=== PATIENT | female | born 1995 | race Asian ===

== ENCOUNTER 2018-05-31 23:42 | Inpatient (IN) | payer OTHER ==
[2018-06-01] MEDS ORDERED: ONDANSETRON 4 MG/2 ML VIAL IVPUSH ONE ×2 (01:00→06:31)
[2018-06-01] MEDS ORDERED: ACETAMINOPHEN 1000 MG/100 ML VIAL (NON FORMULARY) IVPB ONE (01:12)
--- NOTE | 2018-06-01 01:24 | PDOC ---
History of Present Illness - General Chief Complaint: Nausea/Vomiting Stated Complaint: FEVER/VOMITING Time Seen by Provider: 06/01/18 00:18 - History of Present Illness Initial Comments: 06/01/18 01:50 CHIEF COMPLAINT: fever, vomiting, UTI HISTORY OF PRESENT ILLNESS: 22 yo F with no PMH presents to ED with fever and vomiting x 5 days. Patient states she started feeling left flank pain one week ago and dysuria approximately 5 days ago. She was seen at an urgent care facility 4 days ago and prescribed Bactrim and pyridium for a UTI. Patient started vomiting after starting the Bactrim and has not been able to keep any food or fluids down for the past few days. Patient reports Tmax of 102F at home , on arrival to ED patient is febrile to 103.4F and tachy to 104. Patient states she has been vomiting at least 4-7 times daily and also having diarrhea. PAST MEDICAL HISTORY: Denies past medical history FAMILY HISTORY: Denies SOCIAL HISTORY:Denies tobacco, alcohol, illicit drug use. SURGICAL HISTORY: Denies ALLERGIES: No known drug allergies REVIEW OF SYSTEMS General/Constitutional: Fever x 4 days. Denies weakness, weight change. HEENT: Denies change in vision. Denies ear pain or discharge. Denies sore throat. Cardiovascular: Denies chest pain or shortness of breath. Respiratory: Denies cough, wheezing, or hemoptysis. Gastrointestinal: Vomiting x 4 days, diarrhea. Denies constipation, rectal bleeding. Genitourinary: Dysuria x 5 days. Denies hematuria, frequency. Musculoskeletal: L flank pain. Denies joint or muscle swelling or pain. Skin and breasts: Denies rash or easy bruising. Neurologic: Denies headache, vertigo, loss of consciousness, or loss of sensation. PHYSICAL EXAM General Appearance: Uncomfortable appearing, pale, diaphoretic, actively vomiting. HEENT: EOMI, PERRLA, normal ENT inspection, normal voice, TMs normal, pharynx normal. No conjunctival pallor. No photophobia, scleral icterus. Respiratory/Chest: Lungs CTAB. No shortness of breath, chest tenderness, respiratory distress, accessory muscle use. No crackles, rales, rhonchi, stridor , wheezing, dullness Cardiovascular: RRR. S1, S2. Gastrointestinal/Abdominal: Normal bowel sounds. Abdomen soft, non-distended. No tenderness or rebound tenderness. No organomegaly, pulsatile mass, guarding , hernia, hepatomegaly, splenomegaly. Musculoskeletal/Extremities: L CVA tenderness. Normal inspection. FROM of all extremities, normal capillary refill. Pelvis Stable. No CVA tenderness. No tenderness to extremities, pedal edema, swelling, erythema or deformity. Integumentary: Appropriate color, dry, warm. No cyanosis, erythema, jaundice or rash Neurologic: jig operator II-XII intact. Fully oriented, alert. Appropriate mood/affect. Motor strength 5/5. No appreciable EOM palsy, facial droop or sensory deficit. Past History - Past Medical History Allergies/Adverse Reactions: Allergies Allergy/AdvReac Type Severity Reaction Status Date / Time No Known Allergies Allergy Verified 06/01/18 00:45 - Suicide/Smoking/Psychosocial Hx Smoking History: Never smoked Have you smoked in the past 12 months: No Information on smoking cessation initiated: No Hx Alcohol Use: No Drug/Substance Use Hx: No *Physical Exam - Vital Signs Last Vital Signs Temp Pulse Resp BP Pulse Ox 103.4 F H 104 H 20 104/67 99 05/31/18 23:55 05/31/18 23:55 05/31/18 23:55 05/31/18 23:55 05/31/18 23:55 ED Treatment Course - LABORATORY CBC & Chemistry Diagram: 06/01/18 02:47 06/01/18 02:47 Medical Decision Making - Medical Decision Making 06/01/18 02:01 22 yo F with no PMH presents to ED with fever and vomiting x 5 days. Patient ill-appearing, febrile and tachycardic. Concern for sepsis secondary to pyelo, full sepsis workup ordered. -Ofirmev, Zofran, fluids Laboratory Tests 06/01/18 06/01/18 06/01/18 02:47 02:47 03:50 WBC 14.4 H Absolute Neuts (auto) 12.0 H Neutrophils % 83.1 H Potassium 3.2 L Urine Nitrite Positive Ur Leukocyte Esterase 3+ H Urine WBC (Auto) 1300 Urine RBC (Auto) 22 Patient has failed outpt abx, will admit for IV abx, awaiting CT results. Patient also hypokalemic, likely secondary to persistent vomiting. Will replete. -K-dur -Zosyn 06/01/18 04:50 CT findings suspicious for pyelo and small right sided nonbstructing stone. 06/01/18 06:44 Patient's PCP is MD Verma, will admit to hospitalist for inpatient services. . *DC/Admit/Observation/Transfer Diagnosis at time of Disposition: Pyelonephritis - Discharge Dispostion Decision to Admit order: Yes - Referrals - Patient Instructions - Post Discharge Activity
[2018-06-01] MEDS ORDERED: ACETAMINOPHEN INJECTION 100 ML IVPB ONE (01:54)
[2018-06-01] MEDS ORDERED: ONDANSETRON 4 MG/2 ML VIAL ONE ×3 (02:24→14:45)
[2018-06-01] MEDS ORDERED: SODIUM CHLORIDE 0.9% 500 ML INFUS.BAG IV ONE (02:26)
[2018-06-01 03:04] LABS: VENOUS PC02 28.9 mmHg (38-52); VENOUS PH 7.5 (7.32-7.42); VENOUS PO2 82.3 mmHg (28-48)
[2018-06-01 03:11] LABS: BASO % 0.2 % (0-2.0); HEMATOCRIT 36.2 % (32.4-45.2); HEMOGLOBIN 11.8 GM/dL (10.7-15.3); MCH 27.1 pg (25.7-33.7); MCHC 32.6 g/dl (32.0-36.0); MEAN CELL VOLUME 83.3 fl (80-96); MEAN PLT VOLUME 7.7 fl (7.5-11.1); MONO % 12.7 % (3.8-10.2); NEUT % 83.1 % (42.8-82.8); PLATELET COUNT 214 K/MM3 (134-434); RBC 4.35 M/mm3 (3.60-5.2); WHITE BLOOD COUNT 14.4 K/mm3 (4.0-10.0)
[2018-06-01 03:25] LABS: INR 1.2 (0.83-1.09); PROTHROMBIN TIME (PATIENT) 14.2 SEC (9.7-13.0)
[2018-06-01 03:28] LABS: ACTIVATED PTT 33.7 SECONDS (25.2-36.5)
[2018-06-01 03:39] LABS: ALBUMIN 3.2 g/dl (3.4-5.0); ALK PHOS 86 U/L (45-117); ANION GAP 9 MMOL/L (8-16); BILIRUBIN,TOTAL 0.5 mg/dL (0.2-1); BLOOD UREA NITROGEN 7 mg/dL (7-18); CALCIUM 8.3 mg/dL (8.5-10.1); CHLORIDE 103 mmol/L (98-107); CO2 23 mmol/L (21-32); CREATININE 0.9 mg/dL (0.55-1.3); GLUCOSE,RANDOM 109 mg/dL (74-106); LIPASE 85 U/L (73-393); POTASSIUM 3.2 mmol/L (3.5-5.1); SGOT/AST 12 U/L (15-37); SGPT/ALT 18 U/L (13-61); SODIUM 135 mmol/L (136-145); TOT PROT 6.8 g/dl (6.4-8.2)
[2018-06-01] MEDS ORDERED: POTASSIUM CHLORIDE TABS 20 MEQ TABLET.ER (FP) PO ONE ×3 (03:41→05:13)
[2018-06-01 04:12] LABS: URINE APPEARANCE CLOUDY; URINE BILIRUBIN NEGATIVE (<2.0 mg/dL); URINE COLOR AMBER; URINE GLUCOSE (UA) NEGATIVE (NEGATIVE); URINE KETONE TRACE (NEGATIVE); URINE LEUK ESTERASE 3+ (NEGATIVE); URINE NITRITE POSITIVE (NEGATIVE); URINE PROTEIN 2+ (NEGATIVE)
[2018-06-01 04:39] LABS: EPI CELLS RARE /HPF (FEW); URINE BACTERIA MANY /hpf (NONE SEEN)
[2018-06-01] MEDS ORDERED: PIPERACILLIN/TAZOB 3.375 GM 3.375 GM in DEXTROSE 5%-WATER - 50 ML IVPB ONE (04:55)
[2018-06-01] MEDS ORDERED: PIPERACILLIN/TAZOB 3.375 GM 3.375 GM/50 ML BAG IVPB ONE (05:36)
[2018-06-01] MEDS ORDERED: ACETAMINOPHEN 500 MG TABLET (FP) PO ONE (06:31)
[2018-06-01] MEDS ORDERED: ACETAMINOPHEN 325 MG TABLET (FP) ONE ×2 (06:48→06:53)
[2018-06-01] MEDS ORDERED: IBUPROFEN 400 MG TABLET (FP) PO ONE ×2 (06:51→06:53)
[2018-06-01] MEDS ORDERED: SODIUM CHLORIDE 1,000 ML IV SCH (07:30)
[2018-06-01] MEDS ORDERED: CEFTRIAXONE 2 GM/100 ML BAG IVPB ONE (09:02)
[2018-06-01] MEDS: CEFTRIAXONE 2 GM in DEXTROSE 5%-WATER 100 ML IVPB SCH (09:04)
--- NOTE | 2018-06-01 11:07 | EKG ---
Test Reason : Blood Pressure : / mmHG Vent. Rate : 091 BPM Atrial Rate : 091 BPM P-R Int : 118 ms QRS Dur : 086 ms QT Int : 338 ms P-R-T Axes : 037 033 -01 degrees QTc Int : 415 ms NORMAL SINUS RHYTHM NONSPECIFIC T WAVE ABNORMALITY ABNORMAL ECG NO PREVIOUS ECGS AVAILABLE Confirmed by PRINCE HENRY, MAHESH ([id number]) on 06/01/2018 11:06:35 AM Referred By: Confirmed By:MAHESH MORRISON MD
[2018-06-01] MEDS ORDERED: SODIUM CHLORIDE 1,000 ML IV STA ×2 (11:21→14:20)
--- NOTE | 2018-06-01 14:20 | HP ---
CHIEF COMPLAINT: Fever, Dysuria PCP: Dr. Verma HISTORY OF PRESENT ILLNESS: 22yo F with no medical history who presents today for fevers and chills x5 days. Pt reports developing some dysuria without polyuria and then developing fevers and chills shortly thereafter. Unfortunately pt began to develop L sided flank pain without radiation more throbbing and intermittent in nature 2 days prior to this admission. Pt reportedly was seen at an urgent care 4 days prior and was prescribed Bactrim. Pt completed 5 doses (today being the fifth) without improvement of symptoms. Pt also endorses some loose stools and vomiting NB/NB several times prior to coming to ED for evaluation (since resolved with medication). Pt denies any headaches, shortness of breath, chest pain, abdominal pain, hematuria, , recent steroid use. LMP 2 weeks prior ER course was notable for: (1) Hypokalemia 3.2 and repletion Kdur (2) Fever 103*F (3) CT A/P noncontrast - L pyelonephritis with possible nonobstructing stone on L side (4) Zosyn x1 (5) 1L NS Recent Travel: Denies PAST MEDICAL HISTORY: None PAST SURGICAL HISTORY: None Social History: Smoking: Denies Alcohol: Social Drugs: Denies Allergies No Known Allergies Allergy (Verified 06/01/18 00:45) HOME MEDICATIONS: Home Medications Medication Instructions Recorded NK [No Known Home Medication] 06/01/18 REVIEW OF SYSTEMS CONSTITUTIONAL: PRESENT: fever, chills, Absent: diaphoresis, generalized weakness, malaise, loss of appetite, weight change HEENT: Absent: rhinorrhea, nasal congestion, throat pain, throat swelling, difficulty swallowing, mouth swelling, ear pain, eye pain, visual changes CARDIOVASCULAR: Absent: chest pain, syncope, palpitations, irregular heart rate, lightheadedness , peripheral edema RESPIRATORY: Absent: cough, shortness of breath, dyspnea with exertion, orthopnea, wheezing, stridor GASTROINTESTINAL: PRESENT: Diarrhea, vomiting, nausea Absent: abdominal pain, abdominal distension, melena, hematochezia GENITOURINARY: PRESENT: Dysuria, flank pain Absent: frequency, urgency, hesitancy, hematuria MUSCULOSKELETAL: Absent: myalgia, arthralgia, joint swelling, neck pain SKIN: Absent: rash, itching PHYSICAL EXAMINATION Vital Signs - 24 hr 10/06/01/18 06/01/18 23:55 02:11 05:30 Temperature 103.4 F H 100 F H Pulse Rate 104 H Pulse Rate [ 105 H Apical] Respiratory 20 18 Rate Blood Pressure 104/67 Blood Pressure 102/59 L [Right Arm] O2 Sat by Pulse 99 100 100 Oximetry (%) 06/01/18 06/01/18 08:55 11:03 Temperature 99.6 F 99.7 F H Pulse Rate 96 H 94 H Pulse Rate [ Apical] Respiratory 17 17 Rate Blood Pressure 87/47 L 85/46 L Blood Pressure [Right Arm] O2 Sat by Pulse 98 Oximetry (%) GENERAL: Septic-appearing, awake, alert, fully oriented, layin in bed, slightly diaphoretic HEENT: EOMI, ELEANOR, sclera anicteric, [id number] mucosa, no erythema or plaques in posterior oropharynx NECK: No JVD, no lymphadenopathy. LUNGS: CTA bilaterally. No wheezes, and no crackles. No accessory muscle use. HEART: RRR, normal S1 and S2 without murmur ABDOMEN: Soft, nondistended, slight tenderness with L abdominal palpation felt in CVA region, no guarding, no suprapubic tenderness, normoactive BS, no hepatomegaly via palpation. MUSCULOSKELETAL: L CVA tenderness (no R CVA tenderness). EXTREMITIES: 2+ pulses, warm, well-perfused. No cyanosis. No clubbing. No peripheral edema. NEUROLOGICAL: rug sizer II-XII intact. Normal speech. Gait not observed PSYCHIATRIC: Cooperative. Good eye contact. Appropriate mood and affect. SKIN: globally very warm, dry, no rashes or lesions noted Laboratory Results - last 24 hr 06/01/18 06/01/18 06/01/18 02:47 02:47 02:47 WBC 14.4 H RBC 4.35 Hgb 11.8 Hct 36.2 MCV 83.3 MCH 27.1 MCHC 32.6 RDW 14.0 Plt Count 214 MPV 7.7 Absolute Neuts (auto) 12.0 H Neutrophils % 83.1 H Lymphocytes % 4.0 L Monocytes % 12.7 H Eosinophils % 0.0 Basophils % 0.2 Nucleated RBC % 0 PT with INR INR PTT (Actin FS) VBG pH 7.50 H POC VBG pCO2 28.9 L POC VBG pO2 82.3 H Mixed VBG HCO3 22.1 Sodium Potassium Chloride Carbon Dioxide Anion Gap BUN Creatinine Creat Clearance w eGFR Random Glucose Lactic Acid 0.8 Calcium Total Bilirubin AST ALT Alkaline Phosphatase Troponin I Total Protein Albumin Lipase Serum , Qual Urine Color Urine Appearance Urine pH Ur Specific [place] Urine Protein Urine Glucose (UA) Urine Ketones Urine Blood Urine Nitrite Urine Bilirubin Urine Urobilinogen Ur Leukocyte Esterase Urine WBC (Auto) Urine RBC (Auto) Ur Epithelial Cells Urine Bacteria 06/01/18 06/01/18 06/01/18 02:47 03:04 03:04 WBC RBC Hgb Hct MCV MCH MCHC RDW Plt Count MPV Absolute Neuts (auto) Neutrophils % Lymphocytes % Monocytes % Eosinophils % Basophils % Nucleated RBC % PT with INR 14.20 H INR 1.20 H PTT (Actin FS) 33.7 VBG pH POC VBG pCO2 POC VBG pO2 Mixed VBG HCO3 Sodium 135 L Potassium 3.2 L Chloride 103 Carbon Dioxide 23 Anion Gap 9 BUN 7 Creatinine 0.9 Creat Clearance w eGFR > 60 Random Glucose 109 H Lactic Acid Calcium 8.3 L Total Bilirubin 0.5 AST 12 L ALT 18 Alkaline Phosphatase 86 Troponin I < 0.02 Total Protein 6.8 Albumin 3.2 L Lipase 85 Serum , Qual Negative Urine Color Urine Appearance Urine pH Ur Specific [place] Urine Protein Urine Glucose (UA) Urine Ketones Urine Blood Urine Nitrite Urine Bilirubin Urine Urobilinogen Ur Leukocyte Esterase Urine WBC (Auto) Urine RBC (Auto) Ur Epithelial Cells Urine Bacteria 06/01/18 03:50 WBC RBC Hgb Hct MCV MCH MCHC RDW Plt Count MPV Absolute Neuts (auto) Neutrophils % Lymphocytes % Monocytes % Eosinophils % Basophils % Nucleated RBC % PT with INR INR PTT (Actin FS) VBG pH POC VBG pCO2 POC VBG pO2 Mixed VBG HCO3 Sodium Potassium Chloride Carbon Dioxide Anion Gap BUN Creatinine Creat Clearance w eGFR Random Glucose Lactic Acid Calcium Total Bilirubin AST ALT Alkaline Phosphatase Troponin I Total Protein Albumin Lipase Serum , Qual Urine Color [place] Urine Appearance Cloudy Urine pH 6.0 Ur Specific [place] 1.023 Urine Protein 2+ H Urine Glucose (UA) Negative Urine Ketones Trace H Urine Blood 1+ H Urine Nitrite Positive Urine Bilirubin Negative Urine Urobilinogen 2.0 H Ur Leukocyte Esterase 3+ H Urine WBC (Auto) 1300 Urine RBC (Auto) 22 Ur Epithelial Cells Rare Urine Bacteria Many ASSESSMENT/PLAN: 1) Sepsis 2/2 to acute pyelonephritis --Confirmed via CT scan (L renal stranding with possible L nonoccluding nephrolith) --R[place]pehin 2mg IV --Toradol 10mg q6h PO for pain --Bolus 2L NS then can keep NS@100c/hr --Urine cultures and blood cultures pending --Zofran PRN for nausea FEN: Fluids: As above Electrolyte abnormalities: Hypokalemia repleted in ED (repeat with AM labs tomorrow) Nutrition: Regular diet PPX: DVT - Lovenox daily GI - None indicated Dispo: Admit M/S Case discussed with Dr. Eloy Bravo, DO - IM PGY-2 Visit type - Emergency Visit Emergency Visit: Yes ED Registration Date: 06/01/18 Care time: The patient presented to the Emergency Department on the above date and was hospitalized for further evaluation of their emergent condition. - New Patient This patient is new to me today: Yes Date on this admission: 06/01/18 - Critical Care Critical Care patient: No
[2018-06-01] MEDS: ONDANSETRON 4 MG/2 ML VIAL IVPUSH PRN (14:46)
--- NOTE | 2018-06-01 14:46 | PN ---
Teaching Attending Note Name of Resident: Khanh Bravo ATTENDING PHYSICIAN STATEMENT I saw and evaluated the patient. I reviewed the resident's note and discussed the case with the resident. I agree with the resident's findings and plan as documented. SUBJECTIVE:22yo F with no PMH presented to the ER with fevers and vomiting x4days. highest recorded temp at home 102. pt states she had some subjective fevers and L flank pain and went to urgent care last week and was given bactrim which she took for 5 days, had some mild relief and then progressively worsened. no previous infections. denies CP, SOB, V/C/D states she always is told her BP is low OBJECTIVE: Last Vital Signs Temp Pulse Resp BP Pulse Ox 99.7 F H 86 18 91/51 L 98 06/01/18 11:03 06/01/18 14:18 06/01/18 14:18 06/01/18 14:18 06/01/18 14:18 General lethargic, diaphoretic CV S1 S2 RRR no murmur/rub/gallop Lungs CTA B/l no wheezing/rales/rhonchi Abdomen soft NT/ND no flank tenderness + L CVA tenderness Extremities no pedal edema ASSESSMENT AND PLAN: 22yo F with no PMH presented to the ER with fevers and vomiting x4days found to be septic due to pyelonephritis 1. Sepsis due to pyleonephritis- Tm 103.4 with tachycardia. repeat BP by me 95/ 63. received 2L NS so far will give an additional 2L then start at 100cc. Received zosyn in the ER will switch to ceftriaxone. F/u Cx 2. Hypokalemia- repleted iwth Kcl 3. DVT ppx- lovenox
[2018-06-01] MEDS ORDERED: RANITIDINE HCL 150 MG TABLET (FP) ONE (16:11)
[2018-06-01] MEDS: RANITIDINE HCL 150 MG TABLET (FP) PO SCH (16:19)
[2018-06-01] MEDS: SODIUM CHLORIDE 1,000 ML IV SCH (20:15)
[2018-06-01] MEDS: ACETAMINOPHEN 1000 MG/100 ML VIAL (NON FORMULARY) IVPB PRN (20:16)
[2018-06-01] MEDS ORDERED: FLU VACCINE QUAD 60 MCG/0.5 ML (MDV 18-19) IM ONE (21:20)
[2018-06-01] MEDS: HEPARIN NA (PORCINE) 5,000 UNITS/ML 1ML VIAL SQ SCH (22:44)
[2018-06-02] MEDS: ONDANSETRON 4 MG/2 ML VIAL IVPUSH PRN (02:24)
[2018-06-02] MEDS: SODIUM CHLORIDE 1,000 ML IV SCH ×4 (02:39→18:42)
[2018-06-02] MEDS: ACETAMINOPHEN 1000 MG/100 ML VIAL (NON FORMULARY) IVPB PRN ×3 (02:41→21:09)
[2018-06-02] MEDS: HEPARIN NA (PORCINE) 5,000 UNITS/ML 1ML VIAL SQ SCH ×3 (06:10→21:07)
[2018-06-02 07:43] LABS: BASO % 0.2 % (0-2.0); HEMATOCRIT 30.9 % (32.4-45.2); LYMPH % 9.6 % (8-40); MCH 27.1 pg (25.7-33.7); MCHC 32.3 g/dl (32.0-36.0); MEAN CELL VOLUME 83.9 fl (80-96); MEAN PLT VOLUME 7.5 fl (7.5-11.1); NEUT % 76.2 % (42.8-82.8); PLATELET COUNT 194 K/MM3 (134-434); RBC 3.68 M/mm3 (3.60-5.2); RDW 14.6 % (11.6-15.6); WHITE BLOOD COUNT 12.3 K/mm3 (4.0-10.0)
[2018-06-02 08:18] LABS: ANION GAP 6 MMOL/L (8-16); BLOOD UREA NITROGEN 5 mg/dL (7-18); CALCIUM 7.5 mg/dL (8.5-10.1); CHLORIDE 110 mmol/L (98-107); CO2 23 mmol/L (21-32); CREATININE 0.7 mg/dL (0.55-1.3); GLUCOSE,RANDOM 94 mg/dL (74-106); MAGNESIUM 2.1 mg/dL (1.8-2.4); POTASSIUM 3.9 mmol/L (3.5-5.1); SODIUM 140 mmol/L (136-145)
[2018-06-02] MEDS ORDERED: DEXTROSE 5%-WATER 100 ML IVPB ONE (09:32)
--- NOTE | 2018-06-02 09:41 | PN ---
Physical Exam: SUBJECTIVE: Patient seen and examined at bedside. Patient continued to spike fevers throughout the night- TMAX was 102, patient was given tylenol and in addition multiple ice packs were placed on patients body, however, she had no episodes of vomiting over night. Currently, she is having a low grade fever at 100.2 She states her pain is better, however, she is still having some nausea, dysuria and complains of feeling bloated. She denies any CP, SOB, or vomiting. OBJECTIVE: Vital Signs Period Temp Pulse Resp BP Sys/Sim Pulse Ox Last 24 Hr 99.4 F-103 F 86-112 17-20 85-118/46-71 98-98 GENERAL: The patient is awake, alert, laying down in bed appearing in slight distress. LUNGS: Breath sounds equal, clear to auscultation bilaterally, no wheezes, no crackles, no accessory muscle use. HEART: Regular rate and rhythm, S1, S2 without murmur, rub or gallop. ABDOMEN: Soft, nontender, nondistended, normoactive bowel sounds, no guarding, no rebound, no hepatosplenomegaly, no masses. MUSCULOSKELETAL: slight L sided CVA tenderness EXTREMITIES: 2+ pulses, warm, well-perfused, no edema. . PSYCH: Normal mood, normal affect. SKIN: Warm, dry, normal turgor, no rashes or lesions noted Laboratory Results - last 24 hr 06/02/18 06/02/18 07:08 07:08 WBC 12.3 H RBC 3.68 Hgb 10.0 L Hct 30.9 L MCV 83.9 MCH 27.1 MCHC 32.3 RDW 14.6 Plt Count 194 MPV 7.5 Absolute Neuts (auto) 9.4 H Neutrophils % 76.2 Lymphocytes % 9.6 D Monocytes % 14.0 H Eosinophils % 0.0 Basophils % 0.2 Nucleated RBC % 0 Sodium 140 Potassium 3.9 Chloride 110 H Carbon Dioxide 23 Anion Gap 6 L BUN 5 L Creatinine 0.7 Creat Clearance w eGFR > 60 Random Glucose 94 Calcium 7.5 L Magnesium 2.1 Active Medications Generic Name Dose Route Start Last Admin Trade Name Freq PRN Reason Stop Dose Admin Acetaminophen 1,000 mg 06/01/18 11:24 06/02/18 02:41 Ofirmev Injection - IVPB 1,000 mg Q6H PRN Administration FEVER Heparin Sodium (Porcine) 5,000 unit 06/01/18 22:00 06/02/18 06:10 Heparin - SQ 5,000 unit TID AROLDO Administration Ceftriaxone Sodium 2 gm/ 100 mls @ 200 mls/hr 06/01/18 10:00 06/01/18 09:04 Dextrose IVPB 200 mls/hr DAILY AROLDO Administration Protocol Sodium Chloride 1,000 mls @ 150 mls/hr 06/01/18 18:06 06/02/18 02:39 Normal Saline - IV 150 mls/hr ASDIR AROLDO Administration Ketorolac Tromethamine 10 mg 06/01/18 12:29 Toradol PO 06/06/18 12:28 Q6H PRN PAIN LEVEL 6-10 Ondansetron HCl 4 mg 06/01/18 11:24 06/02/18 02:24 Zofran Injection IVPUSH 4 mg Q6H PRN Administration NAUSEA AND/OR VOMITING Ranitidine HCl 150 mg 06/01/18 16:00 06/01/18 16:19 Zantac - PO 150 mg DAILY AROLDO Administration ASSESSMENT/PLAN: Sepsis 2/2 to acute pyelonephritis --Ceftriaxone 2mg IV --Toradol 10mg q6h PO for pain --Urine cultures and blood cultures pending --Zofran PRN for nausea --Tylenol PRN for fever FEN: Fluids: NS @100cc/hr Electrolyte abnormalities: Hypokalemia resolved Nutrition: Regular diet PPX: DVT -Heparin SQ Problem List - Problems (1) Pyelonephritis Code(s): N12 - TUBULO-INTERSTITIAL NEPHRITIS, NOT SPCF ACUTE OR CHRONIC Visit type - Emergency Visit Emergency Visit: Yes ED Registration Date: 06/01/18 Care time: The patient presented to the Emergency Department on the above date and was hospitalized for further evaluation of their emergent condition. - New Patient This patient is new to me today: Yes Date on this admission: 06/02/18 - Critical Care Critical Care patient: No
[2018-06-02] MEDS: RANITIDINE HCL 150 MG TABLET (FP) PO SCH (09:46)
[2018-06-02] MEDS: CEFTRIAXONE 2 GM in DEXTROSE 5%-WATER 100 ML IVPB SCH (09:50)
--- NOTE | 2018-06-02 13:44 | PN ---
Teaching Attending Note Name of Resident: Chata Bryant ATTENDING PHYSICIAN STATEMENT I saw and evaluated the patient. I reviewed the resident's note and discussed the case with the resident. I agree with the resident's findings and plan as documented. SUBJECTIVE:feels much better today. no more vomiting. tolerating diet. some abdominal pain. denies CP, SOB, fever, chills, N/V/C/D OBJECTIVE: Last Vital Signs Temp Pulse Resp BP Pulse Ox 100.2 F H 110 H 20 90/52 L 98 06/02/18 05:34 06/02/18 05:34 06/02/18 05:34 06/02/18 05:34 06/01/18 21:00 General NAD CV S1 S2 RRR no murmur/rub/gallop Lungs CTA B/l no wheezing/rales/rhonchi Abdomen soft NT/ND + L flank tenderness LLQ tenderness Extremities no pedal edema ASSESSMENT AND PLAN: 22yo F with no PMH presented to the ER with fevers and vomiting x4days found to be septic due to pyelonephritis 1. Sepsis due to pyleonephritis- Tm 103. with tachycardia. clinically appears improved. will cont Ceftriaxone day 2. reduce IVF to 100cc/H. F/u Cx. 2. Hypokalemia- resolved 3. DVT ppx- lovenox 4. spoke wiht parents present at bedside. all questions answered. verbalized understanding and agreement
[2018-06-02] MEDS: KETOROLAC TROMETHAMINE 10 MG TABLET PO PRN (15:23)
[2018-06-03] MEDS: ONDANSETRON 4 MG/2 ML VIAL IVPUSH PRN (05:30)
[2018-06-03] MEDS ORDERED: ACETAMINOPHEN 1000 MG/100 ML VIAL (NON FORMULARY) IVPB ONE (05:41)
[2018-06-03] MEDS: HEPARIN NA (PORCINE) 5,000 UNITS/ML 1ML VIAL SQ SCH ×3 (05:54→21:16)
[2018-06-03] MEDS: SODIUM CHLORIDE 1,000 ML IV SCH ×2 (06:36→16:54)
[2018-06-03 07:35] LABS: BASO % 0.2 % (0-2.0); EOS % 0.3 % (0-4.5); HEMOGLOBIN 9.7 GM/dL (10.7-15.3); MCH 26.9 pg (25.7-33.7); MCHC 32.2 g/dl (32.0-36.0); MEAN CELL VOLUME 83.4 fl (80-96); MEAN PLT VOLUME 7.4 fl (7.5-11.1); MONO % 8.6 % (3.8-10.2); NEUT % 80.9 % (42.8-82.8); PLATELET COUNT 242 K/MM3 (134-434); RDW 14.6 % (11.6-15.6); WHITE BLOOD COUNT 10.2 K/mm3 (4.0-10.0)
[2018-06-03 07:54] LABS: ANION GAP 9 MMOL/L (8-16); BLOOD UREA NITROGEN 5 mg/dL (7-18); CALCIUM 7.4 mg/dL (8.5-10.1); CHLORIDE 111 mmol/L (98-107); CO2 21 mmol/L (21-32); CREATININE 0.5 mg/dL (0.55-1.3); GLUCOSE,RANDOM 83 mg/dL (74-106); MAGNESIUM 1.9 mg/dL (1.8-2.4); PHOSPHOROUS 1.7 mg/dL (2.5-4.9); POTASSIUM 3.5 mmol/L (3.5-5.1); SODIUM 141 mmol/L (136-145)
[2018-06-03] MEDS ORDERED: NAPH,MB-DB/K PH,MBDB POWDER PACKET PO ONE (07:57)
--- NOTE | 2018-06-03 08:16 | PN ---
Physical Exam: SUBJECTIVE: Patient seen and examined at bedside. Patient spiked a fever of 102.7 overnight. She is still having some nausea and CVA tenderness however, she is not having anymore episodes of vomiting. She is tolerating solid foods without any vomiting. She denies any CP/SOB/ headaches or chills. OBJECTIVE: Vital Signs Period Temp Pulse Resp BP Sys/Sim Pulse Ox Last 24 Hr 100.2 F-102.7 F 88-96 18-20 80-100/44-65 100 GENERAL: The patient is awake, alert, and fully oriented, in no acute distress. EYES: no scleral icterus . NECK: no JVD appreciated. LUNGS: Breath sounds equal, clear to auscultation bilaterally, no wheezes, no crackles, no accessory muscle use. HEART: Regular rate and rhythm, S1, S2 without murmur, rub or gallop. ABDOMEN: Soft, nontender, nondistended, normoactive bowel sounds, no guarding, no rebound, no hepatosplenomegaly, no masses. MUSCULOSKELETAL: slight L sided CVA tenderness EXTREMITIES: 2+ pulses, warm, well-perfused, no edema. PSYCH: Normal mood, normal affect. SKIN: Warm, dry, normal turgor, no rashes or lesions noted Laboratory Results - last 24 hr 06/02/18 06/03/18 06/03/18 07:08 05:55 05:55 WBC 10.2 H RBC 3.60 Hgb 9.7 L Hct 30.0 L MCV 83.4 MCH 26.9 MCHC 32.2 RDW 14.6 Plt Count 242 D MPV 7.4 L Absolute Neuts (auto) 8.3 H Neutrophils % 80.9 Lymphocytes % 10.0 Monocytes % 8.6 Eosinophils % 0.3 D Basophils % 0.2 Nucleated RBC % 0 Sodium 140 141 Potassium 3.9 3.5 Chloride 110 H 111 H Carbon Dioxide 23 21 Anion Gap 6 L 9 BUN 5 L 5 L Creatinine 0.7 0.5 L Creat Clearance w eGFR > 60 > 60 Random Glucose 94 83 Calcium 7.5 L 7.4 L Phosphorus 1.7 L Magnesium 2.1 1.9 Active Medications Generic Name Dose Route Start Last Admin Trade Name Freq PRN Reason Stop Dose Admin Heparin Sodium (Porcine) 5,000 unit 06/01/18 22:00 06/03/18 05:54 Heparin - SQ Not Given TID [facility] Ceftriaxone Sodium 2 gm/ 100 mls @ 200 mls/hr 06/01/18 10:00 06/02/18 09:50 Dextrose IVPB 200 mls/hr DAILY AROLDO Administration Protocol Sodium Chloride 1,000 mls @ 100 mls/hr 06/02/18 13:44 06/03/18 06:36 Normal Saline - IV 100 mls/hr ASDIR AROLDO Administration Ketorolac Tromethamine 10 mg 06/01/18 12:29 06/02/18 15:23 Toradol PO 06/06/18 12:28 10 mg Q6H PRN Administration PAIN LEVEL 6-10 Ondansetron HCl 4 mg 06/01/18 11:24 06/03/18 05:30 Zofran Injection IVPUSH 4 mg Q6H PRN Administration NAUSEA AND/OR VOMITING Ranitidine HCl 150 mg 06/01/18 16:00 06/02/18 09:46 Zantac - PO 150 mg DAILY AROLDO Administration ASSESSMENT/PLAN: 22 y/o female with no significant PMH presents to hospital with complaints of dysuria, nausea and vomiting found to have L sided obstructing stone. Sepsis 2/2 Pyelnoephritis: -WBC count trending down -urine cx growing e-coli\ -day 3 of ceftriaxone -monitor fever trend -Tylenol PRN for fever -Zofran PRN for nausea Anemia -patients Hgb has droppef from 11.8 to 9.9 -no active signs of bleeding -iron studies pending F/E/N NS@100mls/hr monitor electrolytes regular diet DVT PPX: Heparin SQ Problem List - Problems (1) Pyelonephritis Code(s): N12 - TUBULO-INTERSTITIAL NEPHRITIS, NOT SPCF ACUTE OR CHRONIC Visit type - Emergency Visit Emergency Visit: Yes ED Registration Date: 06/01/18 Care time: The patient presented to the Emergency Department on the above date and was hospitalized for further evaluation of their emergent condition. - New Patient This patient is new to me today: No - Critical Care Critical Care patient: No
[2018-06-03] MEDS ORDERED: DEXTROSE 5%-WATER 100 ML IVPB ONE (09:07)
[2018-06-03] MEDS: CEFTRIAXONE 2 GM in DEXTROSE 5%-WATER 100 ML IVPB SCH (09:31)
[2018-06-03] MEDS: RANITIDINE HCL 150 MG TABLET (FP) PO SCH (09:32)
[2018-06-03] MEDS: LACTOBACILLUS ACIDOPHILUS 1 TABLET PO SCH (11:53)
--- NOTE | 2018-06-03 13:00 | PN ---
Teaching Attending Note Name of Resident: Chata Bryant ATTENDING PHYSICIAN STATEMENT I saw and evaluated the patient. I reviewed the resident's note and discussed the case with the resident. I agree with the resident's findings and plan as documented. SUBJECTIVE:states she feels better today. her appetite is improving. had loose BM today. denies CP, SOB, fever, chills, N/V/C/D OBJECTIVE: Last Vital Signs Temp Pulse Resp BP Pulse Ox 98.5 F 94 H 20 103/59 L 97 06/03/18 08:52 06/03/18 08:52 06/03/18 08:52 06/03/18 08:52 06/03/18 09:00 General NAD Lungs CTA B/l no wheezing/rales/rhonchi Abdomen soft ND +L flank soreness ASSESSMENT AND PLAN: 22yo F with no PMH presented to the ER with fevers and vomiting x4days found to be septic due to pyelonephritis 1. Sepsis due to pyleonephritis- Tm 102.7. tachycardia resolved. clinically looks improved. cont Ceftriaxone day 3. cont IVF till fevers resolve. Cx showing Ecoli sensitive to Ceftriaxone 2. Loose BM- will start bacid 3. Hypophosphatemia- start neutraphos 4. Hypokalemia- resolved 5. DVT ppx- lovenox 6. spoke wiht parents present at bedside. all questions answered. verbalized understanding and agreement
[2018-06-03] MEDS: KETOROLAC TROMETHAMINE 10 MG TABLET PO PRN (15:50)
[2018-06-03 19:51] VITALS: BMI 28.7
[2018-06-03] MEDS ORDERED: guaiFENesin 200 MG/10 ML 10 ML UNIT-DOSE CUPS PO ONE (23:57)
[2018-06-04] MEDS ORDERED: ACETAMINOPHEN 325 MG TABLET (FP) PO ONE (01:01)
[2018-06-04 06:09] LABS: SERUM IRON SATURATION 6 % (15-55); TOTAL IRON BINDING CAPACITY 159 ug/dL (250-450); UIBC 149 ug/dL (131-425)
[2018-06-04] MEDS: HEPARIN NA (PORCINE) 5,000 UNITS/ML 1ML VIAL SQ SCH ×3 (06:30→23:03)
[2018-06-04 06:31] LABS: HEMATOCRIT 32.2 % (32.4-45.2); HEMOGLOBIN 10.4 GM/dL (10.7-15.3); MCH 27.1 pg (25.7-33.7); MCHC 32.3 g/dl (32.0-36.0); MEAN CELL VOLUME 83.7 fl (80-96); MEAN PLT VOLUME 6.8 fl (7.5-11.1); PLATELET COUNT 286 K/MM3 (134-434); RBC 3.85 M/mm3 (3.60-5.2); RDW 14.4 % (11.6-15.6); WHITE BLOOD COUNT 6.7 K/mm3 (4.0-10.0)
[2018-06-04 07:19] LABS: ANION GAP 8 MMOL/L (8-16); BLOOD UREA NITROGEN 3 mg/dL (7-18); CALCIUM 7.8 mg/dL (8.5-10.1); CHLORIDE 110 mmol/L (98-107); CO2 24 mmol/L (21-32); CREATININE 0.5 mg/dL (0.55-1.3); GLUCOSE,RANDOM 87 mg/dL (74-106); POTASSIUM 3.4 mmol/L (3.5-5.1); SODIUM 141 mmol/L (136-145)
[2018-06-04] MEDS ORDERED: POTASSIUM CHLORIDE TABS 20 MEQ TABLET.ER (FP) PO ONE (08:30)
--- NOTE | 2018-06-04 09:01 | PN ---
Physical Exam: SUBJECTIVE: Patient seen and examined at bedside. still had a tmax of 102 overnight. states she is feeling better- no more episodes of nausea/vomiting only slight L sided CVA tenderness- denies any CP/SOB/N/V OBJECTIVE: Vital Signs Period Temp Pulse Resp BP Sys/Sim Pulse Ox Last 24 Hr 98.3 F-102 F 76-98 20-21 103-110/60-76 97-98 GENERAL: The patient is awake, alert, in no acute distress. EYES: no scleral icterus. NECK: no JVD appreciated LUNGS: CTA B/L; no rales, rhonchi or wheezing HEART: Regular rate and rhythm, S1, S2 without murmur, rub or gallop. ABDOMEN: Soft, nontender, nondistended, normoactive bowel sounds, no guarding, no rebound, no hepatosplenomegaly, no masses. MUSCULOSKELETAL: slight L sided CVA tenderness EXTREMITIES: 2+ pulses, warm, well-perfused, no edema. PSYCH: Normal mood, normal affect. SKIN: Warm, dry, normal turgor, no rashes or lesions noted Laboratory Results - last 24 hr 06/03/18 06/04/18 06/04/18 05:55 06:15 06:15 WBC 6.7 RBC 3.85 Hgb 10.4 L Hct 32.2 L MCV 83.7 MCH 27.1 MCHC 32.3 RDW 14.4 Plt Count 286 MPV 6.8 L Sodium 141 Potassium 3.4 L Chloride 110 H Carbon Dioxide 24 Anion Gap 8 BUN 3 L Creatinine 0.5 L Creat Clearance w eGFR > 60 Random Glucose 87 Calcium 7.8 L Iron 10 L TIBC 159 L Iron Saturation 6 L Active Medications Generic Name Dose Route Start Last Admin Trade Name Freq PRN Reason Stop Dose Admin Heparin Sodium (Porcine) 5,000 unit 06/01/18 22:00 06/04/18 06:30 Heparin - SQ Not Given TID [facility] Ceftriaxone Sodium 2 gm/ 100 mls @ 200 mls/hr 06/01/18 10:00 06/03/18 09:31 Dextrose IVPB 200 mls/hr DAILY AROLDO Administration Protocol Sodium Chloride 1,000 mls @ 100 mls/hr 06/02/18 13:44 06/03/18 16:54 Normal Saline - IV 100 mls/hr ASDIR AROLDO Administration Ketorolac Tromethamine 10 mg 06/01/18 12:29 06/03/18 15:50 Toradol PO 06/06/18 12:28 10 mg Q6H PRN Administration PAIN LEVEL 6-10 Lactobacillus Acidophilus 1 tab 06/03/18 11:00 06/03/18 11:53 Bacid - PO 1 tab DAILY AROLDO Administration Ondansetron HCl 4 mg 06/01/18 11:24 06/03/18 05:30 Zofran Injection IVPUSH 4 mg Q6H PRN Administration NAUSEA AND/OR VOMITING Ranitidine HCl 150 mg 06/01/18 16:00 06/03/18 09:32 Zantac - PO 150 mg DAILY AROLDO Administration ASSESSMENT/PLAN: 22 y/o female with no significant PMH presents to hospital with complaints of dysuria, nausea and vomiting found to have L sided obstructing stone. Sepsis 2/2 Pyelnoephritis: -WBC count normalized -urine cx growing e-coli -day 4 of ceftriaxone -monitor fever trend -Tylenol PRN for fever -Zofran PRN for nausea Anemia -patients Hgb has droppef from 11.8 to 9.9 -no active signs of bleeding -iron studies pending F/E/N NS@100mls/hr electrolytes- hypokalemia- repleted regular diet DVT PPX: Heparin SQ Problem List - Problems (1) Pyelonephritis Code(s): N12 - TUBULO-INTERSTITIAL NEPHRITIS, NOT SPCF ACUTE OR CHRONIC Visit type - Emergency Visit Emergency Visit: Yes ED Registration Date: 06/01/18 Care time: The patient presented to the Emergency Department on the above date and was hospitalized for further evaluation of their emergent condition. - New Patient This patient is new to me today: No - Critical Care Critical Care patient: No
[2018-06-04] MEDS ORDERED: DEXTROSE 5%-WATER 100 ML IVPB ONE (09:25)
[2018-06-04] MEDS: RANITIDINE HCL 150 MG TABLET (FP) PO SCH (09:38)
[2018-06-04] MEDS: LACTOBACILLUS ACIDOPHILUS 1 TABLET PO SCH (09:38)
[2018-06-04] MEDS: SODIUM CHLORIDE 1,000 ML IV SCH (14:10)
--- NOTE | 2018-06-04 14:30 | PN ---
Teaching Attending Note Name of Resident: Chata Bryant ATTENDING PHYSICIAN STATEMENT I saw and evaluated the patient. I reviewed the resident's note and discussed the case with the resident. I agree with the resident's findings and plan as documented. SUBJECTIVE:states she feels much better today. denies CP, SOB, fever, chills, N/ V/C/D. diet improving OBJECTIVE: Last Vital Signs Temp Pulse Resp BP Pulse Ox 98.7 F 76 20 109/76 98 06/04/18 08:38 06/04/18 08:38 06/04/18 08:38 06/04/18 08:38 06/04/18 09:00 General NAD Lungs CTA B/l no wheezing/rales/rhonchi Abdomen soft ND/NT no CVA tenderness ASSESSMENT AND PLAN: 22yo F with no PMH presented to the ER with fevers and vomiting x4days found to be septic due to pyelonephritis 1. Sepsis due to pyleonephritis- Tm 102. however only single temp spike which is improved. Cx shwoing sensitivities. on Ceftriaxone day 4. can likely d/c IVF if tolerating diet. 2. Loose BM- improved. cont bacid 3. Hypophosphatemia- resolved 4. Hypokalemia- due to diarrhea yesterday. kcl po 5. DVT ppx- lovenox 6. spoke wiht parents present at bedside. all questions answered. verbalized understanding and agreement 7. d/c home once afebrile.
[2018-06-04] MEDS: KETOROLAC TROMETHAMINE 10 MG TABLET PO PRN (15:16)
[2018-06-05 05:53] VITALS: TEMP 99.1
[2018-06-05] MEDS: HEPARIN NA (PORCINE) 5,000 UNITS/ML 1ML VIAL SQ SCH (06:59)
[2018-06-05] MEDS ORDERED: DEXTROSE 5%-WATER 100 ML IVPB ONE (08:04)
[2018-06-05 08:24] LABS: HEMOGLOBIN 10.7 GM/dL (10.7-15.3); MCHC 32.3 g/dl (32.0-36.0); MEAN CELL VOLUME 83.7 fl (80-96); MEAN PLT VOLUME 6.9 fl (7.5-11.1); PLATELET COUNT 394 K/MM3 (134-434); RBC 3.94 M/mm3 (3.60-5.2); RDW 14.3 % (11.6-15.6); WHITE BLOOD COUNT 5.6 K/mm3 (4.0-10.0)
[2018-06-05 09:05] LABS: ANION GAP 9 MMOL/L (8-16); BLOOD UREA NITROGEN 5 mg/dL (7-18); CALCIUM 8.4 mg/dL (8.5-10.1); CHLORIDE 106 mmol/L (98-107); CO2 27 mmol/L (21-32); CREATININE 0.6 mg/dL (0.55-1.3); GLUCOSE,RANDOM 86 mg/dL (74-106); PHOSPHOROUS 3.9 mg/dL (2.5-4.9); POTASSIUM 4.3 mmol/L (3.5-5.1); SODIUM 142 mmol/L (136-145)
[2018-06-05] MEDS: RANITIDINE HCL 150 MG TABLET (FP) PO SCH (09:09)
[2018-06-05] MEDS: LACTOBACILLUS ACIDOPHILUS 1 TABLET PO SCH (09:09)
[2018-06-05 09:38] VITALS: BP 100/60; PULSE 85
[2018-06-05] MEDS ORDERED: CEFTRIAXONE 2 GM in DEXTROSE 5%-WATER 100 ML IVPB SCH (10:00)
--- NOTE | 2018-06-05 12:06 | DS ---
Physical Exam: SUBJECTIVE: Patient seen and examined at bedside. patient did not spike any fevers overnight- she states her abdominal pain is much better and she is no longer having anymore nausea,vomiting or diarrhea. She denies any CP/SOB fevers or chills OBJECTIVE: Vital Signs Period Temp Pulse Resp BP Sys/Sim Pulse Ox Last 24 Hr 98.5 F-99.1 F 64-85 18-20 100-117/60-73 98 PHYSICAL EXAM GENERAL: The patient is awake, alert, and fully oriented, in no acute distress. EYES: no scleral icterus NECK: no JVD appreciated. LUNGS: CTA B/L; no rales, rhonchi or wheezing HEART: Regular rate and rhythm, S1, S2 without murmur, rub or gallop. ABDOMEN: Soft, nontender, nondistended, normoactive bowel sounds, no guarding, no rebound, no hepatosplenomegaly, no masses. EXTREMITIES: 2+ pulses, warm, well-perfused, no edema. PSYCH: Normal mood, normal affect. SKIN: Warm, dry, normal turgor, no rashes or lesions noted. LABS Laboratory Results - last 24 hr 06/05/18 06/05/18 07:00 07:00 WBC 5.6 RBC 3.94 Hgb 10.7 Hct 33.0 MCV 83.7 MCH 27.0 MCHC 32.3 RDW 14.3 Plt Count 394 D MPV 6.9 L Sodium 142 Potassium 4.3 Chloride 106 Carbon Dioxide 27 Anion Gap 9 BUN 5 L Creatinine 0.6 Creat Clearance w eGFR > 60 Random Glucose 86 Calcium 8.4 L Phosphorus 3.9 HOSPITAL COURSE: Date of Admission:06/01/18 22 y/o female with no PMH presented with a 5 day history with pain on urination , fevers, nausea/vomiting. On imaging she was found to have a L sided obstructing stone. She was found to have a leukocytosis of 14.4 and was febrile upon presentation. She was started on Ceftriaxone 1 gram daily, given fluids,. In addition, she was given zofran PRN for nausea, zantac and tylenol for pain. She continued to spike fevers but only at night for 3 nights in a row. IN addition, we began to notice her Hgb dropping from 11.8-9.8, iron studies were obtained and patient was found to have an iron deficiency anemia. After 4 inpatient days, patient clinically improved, she no longer was spiking fevers, her WBC count normalized and we discharged her with a 5 day course of cefdinir 300 BID and iron pills and advised her to follow up as an outpatient. Date of Discharge: 06/05/18 Minutes to complete discharge: 39 Discharge Summary Reason For Visit: PYELNOPHRITIS Current Active Problems Iron deficiency anemia (Acute) Pyelonephritis (Acute) Sepsis (Acute) Condition: Improved - Instructions Diet, Activity, Other Instructions: You came to the hospital with complaints of pain on urination in addition to multiple episodes of vomiting. You were found to have a Left sided kidney infection. We treated with antibiotics and your condition improved. You are no longer having any episodes of nausea or vomiting and your pain is decreased. Medications: please continue taking the antibiotic Cefdinir 300mg two times per day for the next 5 days starting tomorrow. You were also started on iron supplements. Take this every day. This can cause constipation and your stools to become black. PLease ensure you are having regular bowel movements. You should have your iron studies repeated in 3 months to see if you need to continue it. Referrals: we advise you to follow up with your PCP, Dr. Verma in one week * if you experience any nausea, vomiting, fevers, chills, chest pain, shortness of breath please return to the emergency room immediately Referrals: Rick Verma [Non Staff, Medical] - 1 Week Disposition: HOME - Home Medications Comprehensive Discharge Medication List: Ambulatory Orders Cefdinir [Omnicef -] 300 mg PO BID #10 capsule 06/05/18 Ferrous Sulfate [Feosol] 325 mg PO BID #60 tablet 06/05/18 Problem List - Problems (1) Pyelonephritis Code(s): N12 - TUBULO-INTERSTITIAL NEPHRITIS, NOT SPCF ACUTE OR CHRONIC This patient is new to me today: No Emergency Visit: Yes ED Registration Date: 06/01/18 Care time: The patient presented to the Emergency Department on the above date and was hospitalized for further evaluation of their emergent condition. Critical Care patient: No - Discharge Referral Referred to [facility] Med [facility] No
--- NOTE | 2018-06-05 12:15 | PN ---
Teaching Attending Note Name of Resident: Chata Bryant ATTENDING PHYSICIAN STATEMENT I saw and evaluated the patient. I reviewed the resident's note and discussed the case with the resident. I agree with the resident's findings and plan as documented. SUBJECTIVE:asymptomatic. denies CP, SOB, fever, chills, N/V/C/D OBJECTIVE: Last Vital Signs Temp Pulse Resp BP Pulse Ox 99.1 F 85 18 100/60 98 06/05/18 05:51 06/05/18 09:00 06/05/18 09:00 06/05/18 09:00 06/04/18 21:00 General NAD Abdomen soft ND/NT no CVA tenderness ASSESSMENT AND PLAN: 22yo F with no PMH presented to the ER with fevers and vomiting x4days found to be septic due to pyelonephritis 1. Sepsis due to pyleonephritis-afebrile 24H. clinically improved. on Ceftriaxone day 5. will switch to cefdinir for an additional 5 days. 2. Loose BM- improved. cont bacid 3. Iron def anemia- will start iron supplements. advised on side effects of iron. will need iron studies repeated in 3 months 3. Hypophosphatemia- resolved 4. Hypokalemia- due to diarrhea yesterday. resolved 5. DVT ppx- lovenox 6. d.c home
== END 2018-06-05 13:28 | disposition home or self-care (01) | DRG 872 ==
LOC: JER 23:42 → JERBED 06-01 06:31 → J6S 06-01 19:46
PROVIDERS: ADMIT Internal Medicine; ATTEND Internal Medicine
DX: A41.9 Sepsis, unspecified organism (principal); N12 Tubulo-interstitial nephritis, not specified as acute or chronic; E87.6 Hypokalemia; E83.39 Other disorders of phosphorus metabolism; B96.29 Other Escherichia coli [E. coli] as the cause of diseases classified elsewhere; D50.9 Iron deficiency anemia, unspecified
CPT/HCPCS: 36415; 71045-TC-FY; 74177-TC; 80048; 80053; 81003; 81015; 82728; 82803; 83540; 83550; 83605; 83690; 83735; 84100; 84484; 84703; 85025; 85027; 85610; 85730; 87040; 87086; 87186; 93005; 93010; 99284-25; J0131; J1644; J7030